=== PATIENT | male | born 1960 | race Caucasian/White ===

== ENCOUNTER → 2017-11-06 | Outpatient (CLI) | payer OTHER ==
[~2017-11-06] MED LIST: CYC10 PO; DIA10 PO; DIA5 PO; KET10 PO; LOR7.5/325 PO; LOR75 PO; MELO-150 PO; NAP250 PO; PER PO; PRE10 PO
--- NOTE | 2017-11-06 15:00 | RADIOLOGY IMAGING REPORT ---
FACILITY: [facility] - [place] PATIENT NAME: Efrain Cardenas : 1960 MR: [id number] V: [id number] EXAM DATE: ORDERING PHYSICIAN: ANTONINA HAYNES TECHNOLOGIST: Location: [facility] Patient: Efrain Cardenas : 1960 Visit/Account:[id number] Date of Sevice: 11/06/2017 Exam type: LUMBAR SPINE 2 OR 3 VIEW History: Low back pain Comparison: August 23, 2008. Findings: Five nonrib-bearing lumbar-type vertebral bodies present.. No evidence of acute fractures or subluxa tions. This mild disc space narrowing at L5-S1.. Tiny anterior osteophytes projects from the superi or endplates of L3 and L4. IMPRESSION: 1. Mild spondylotic changes lumbar spine. If patient's pain continues MR may be helpful Report Dictated By: Marietta Martinez MD at 11/06/2017 2:54 PM Report E-Signed By: Marietta Martinez MD at 11/06/2017 2:56 PM WSN:[email or web address]
== END ==
LOC: RAD 13:55
PROVIDERS: ATTEND Family Medicine
DX: M47.896 Other spondylosis, lumbar region (principal)
CPT/HCPCS: 72100

== ENCOUNTER 2018-04-25 16:41 | Emergency (ER) | payer OTHER ==
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
[2018-04-25] MEDS ORDERED: DIPHTH/TETANUS/ACEL. PERTUSSIS IM ONLY ONE (17:45)
[2018-04-25] MEDS ORDERED: CEPH500C24 PO (17:46)
[2018-04-25 17:50] VITALS: BP 140/96
== END 2018-04-25 17:57 | disposition home or self-care (01) ==
LOC: ER 17:18
DX: S81.032A Puncture wound without foreign body, left knee, initial encounter (principal)
CPT/HCPCS: 90471; 90715; 99283